=== PATIENT | female | born 1960 | race Caucasian/White ===

== ENCOUNTER 2018-02-24 11:47 | Emergency (ER) | payer MEDICAID, MEDICARE ==
[~2018-02-24] VITALS: Ht 165.1 cm; Wt 108.9 kg
[~2018-02-24 11:47] MED LIST: PAR20T PO
[2018-02-24 11:57] VITALS: BP 153/96
[2018-02-24] MEDS: cefTRIAXone SOD 1,000 MG VL ONE (12:57)
[2018-02-24] MEDS: TETANUS-DIPTH-ACEL PERTUSSIS 0.5ML SYRG IM ONE (13:12)
[2018-02-24] MEDS: KETOROLAC TROMETH 60MG/2ML VIAL IM ONE (13:12)
[2018-02-24] MEDS: cefTRIAXone SOD 1,000 MG VL IM ONE (13:12)
== END 2018-02-24 13:26 | disposition home or self-care (01) ==
LOC: ER 11:47
DX: S61.432A Puncture wound without foreign body of left hand, initial encounter (principal); J45.909 Unspecified asthma, uncomplicated; I10 Essential (primary) hypertension; F17.210 Nicotine dependence, cigarettes, uncomplicated; F12.10 Cannabis abuse, uncomplicated; W54.0XXA Bitten by dog, initial encounter; Y93.89 Activity, other specified; Y99.8 Other external cause status; Y92.89 Other specified places as the place of occurrence of the external cause
CPT/HCPCS: 73130; 90471; 90715; 96372; 99283; J0696; J1885

== ENCOUNTER 2021-04-12 14:08 | Inpatient (IN) | payer MEDICARE, MEDICAID ==
[~2021-04-12] VITALS: Ht 162.6 cm; Wt 122.2 kg
[2021-04-12 17:53] LABS: Urine Bacteria FEW /hpf (None Seen); Urine Blood Negative /uL (Negative); Urine Specific Gravity 1.018 (1.001-1.035); Urine WBC 1 /hpf (0 - 5)
[2021-04-12 18:09] LABS: Basophils # (auto) 0.1 10 ^3/uL (0-0.2); Basophils % (auto) 1.2 % (0.0-2.0); Eosinophils # (auto) 0.2 10 ^3/uL (0-0.8); Eosinophils % (auto) 2.7 % (0.0-7.0); Hematocrit 47.2 % (36.0-46.0); Hemoglobin 15.4 g/dL (12.2-16.2); Lymphocytes # (auto) 1.7 10 ^3/uL (0.4-5.4); Lymphocytes % (auto) 23.5 % (10.0-50.0); Mean Corpuscular Hemoglobin 29.5 pg (28.0-32.0); Mean Corpuscular Hgb Conc. 32.7 g/dL (32.0-36.0); Mean Corpuscular Volume 90.2 fL (80.0-100.0); Monocytes # (auto) 0.5 10 ^3/uL (0-1.3); Monocytes % (auto) 7.6 % (0.0-12.0); Neutrophils # (auto) 4.7 10 ^3/uL (1.6-8.6); Nucleated Red Blood Cells % 0.3 %; Red Blood Cells 5.23 10^6/uL (4.0-5.20); Red Cell Distribution Width 14.6 % (11.8-14.3); White Blood Cell 7.2 10^3/uL (4.4-10.8)
[2021-04-12 18:24] LABS: Magnesium 2.4 mg/dL (1.6-2.6)
[2021-04-12 18:41] LABS: Calcium 8.9 mg/dL (8.5-10.1); INR 1.09 (0.9-1.15); Partial Thromboplastin Time 28.8 sec (23.6-33.0); Potassium 3.8 mmol/L (3.5-5.1)
[2021-04-12 18:46] LABS: BUN/Creatinine Ratio 17.8; Total Protein 7.9 g/dL (6.4-8.2)
[2021-04-12] MEDS ORDERED: METOPROLOL TARTRATE 25 MG TAB PO ONE (20:15)
[2021-04-12] MEDS ORDERED: cefTRIAXone 1GM/50ML D5W 50 ML IV ONE (20:15)
[2021-04-12] MEDS ORDERED: ACETAMINOPHEN 325 MG TAB PO PRN (21:45)
[2021-04-12] MEDS ORDERED: MORPHINE SULFATE 4 MG/ML SYR/VIAL IV PRN (21:45)
[2021-04-12] MEDS ORDERED: METOPROLOL TARTRATE 1MG/1ML-5ML VIAL IV PRN (21:45)
[2021-04-12] MEDS ORDERED: ONDANSETRON HCL 4 MG/2 ML VIAL IV PRN (21:45)
[2021-04-12] MEDS ORDERED: FUROSEMIDE 20 MG/2 ML VIAL IV ONE (21:45)
[2021-04-12] MEDS ORDERED: DOCUSATE SOD 100 MG CAP PO PRN (21:45)
[2021-04-12] MEDS ORDERED: NITROGLYCERIN 0.4 MG SL TAB SL PRN (23:45)
[2021-04-12] MEDS ORDERED: MORPHINE SULFATE INJECTION 2 MG/ML SYRG IV PRN (23:45)
[2021-04-13 04:17] LABS: Basophils # (auto) 0.1 10 ^3/uL (0-0.2); Basophils % (auto) 1.7 % (0.0-2.0); Eosinophils # (auto) 0.2 10 ^3/uL (0-0.8); Eosinophils % (auto) 3.1 % (0.0-7.0); Hematocrit 44.6 % (36.0-46.0); Hemoglobin 15.1 g/dL (12.2-16.2); Lymphocytes # (auto) 1.3 10 ^3/uL (0.4-5.4); Lymphocytes % (auto) 20.6 % (10.0-50.0); Mean Corpuscular Hemoglobin 30.4 pg (28.0-32.0); Mean Corpuscular Hgb Conc. 33.8 g/dL (32.0-36.0); Mean Corpuscular Volume 90.1 fL (80.0-100.0); Monocytes # (auto) 0.5 10 ^3/uL (0-1.3); Monocytes % (auto) 8.1 % (0.0-12.0); Neutrophils % (auto) 66.5 % (37.0-80.0); Nucleated Red Blood Cells % 0.1 %; Red Blood Cells 4.95 10^6/uL (4.0-5.20); Red Cell Distribution Width 14.4 % (11.8-14.3); White Blood Cell 6.1 10^3/uL (4.4-10.8)
[2021-04-13] MEDS: METOPROLOL TARTRATE 25 MG TAB PO SCH ×2 (04:20→11:58)
[2021-04-13] MEDS: APIXABAN 5 MG TAB PO SCH ×3 (04:20→22:52)
[2021-04-13 04:34] LABS: Albumin 3.7 g/dL (3.4-5.0); BUN/Creatinine Ratio 16.9; Calcium 8.8 mg/dL (8.5-10.1); Potassium 4.1 mmol/L (3.5-5.1)
[2021-04-13 04:36] LABS: Bilirubin, Total 1.4 mg/dL (0.2-1.0); Total Protein 6.8 g/dL (6.4-8.2)
[2021-04-13] MEDS: SODIUM CHLOR 0.9% PF (SALINE LOCK) 10ML VIAL/SYR IV SCH ×4 (05:00→22:00)
[2021-04-13] MEDS: METOPROLOL TARTRATE 1MG/1ML-5ML VIAL IV SCH ×3 (05:00→06:05)
[2021-04-13] MEDS ORDERED: LEVOTHYROXINE SODIUM 25 MCG TAB PO SCH (07:00)
[2021-04-13] MEDS: LEVOTHYROXINE SODIUM 25 MCG TAB PO SCH ×2 (08:26→09:12)
[2021-04-13] MEDS: cefTRIAXone 1GM/50ML D5W 50 ML IV SCH (09:19)
[2021-04-13] MEDS: PARoxetine 20 MG TAB PO SCH (11:58)
[2021-04-13] MEDS: FAMOTIDINE (10MG/ML) 2ML VL IV SCH (11:58)
[2021-04-13] MEDS: FUROSEMIDE 20 MG/2 ML VIAL IV SCH (11:58)
[2021-04-13 12:19] LABS: Cholesterol 142 mg/dL (< 200); HDL Cholesterol 36 mg/dL (40-59); LDL Cholesterol 90 mg/dL (< 100); Triglycerides 113 mg/dL (< 150)
[2021-04-13] MEDS ORDERED: PAR20T PO (16:08)
[2021-04-13 16:59] VITALS: BP 131/90
[2021-04-13] MEDS: METOPROLOL TARTRATE 50 MG TAB PO SCH (18:12)
[2021-04-13 22:00] VITALS: BP 125/86
[2021-04-13] MEDS: AMIODARONE HCL 200 MG TAB PO SCH (22:00)
[2021-04-13] MEDS: LORazepam 0.5 MG TAB PO PRN (23:56)
[2021-04-14 05:00] VITALS: BP 128/85
[2021-04-14] MEDS: SODIUM CHLOR 0.9% PF (SALINE LOCK) 10ML VIAL/SYR IV SCH ×3 (05:30→21:11)
[2021-04-14] MEDS: LEVOTHYROXINE SODIUM 88 MCG TAB PO SCH (05:30)
[2021-04-14 08:41] VITALS: BP 139/77
[2021-04-14] MEDS: cefTRIAXone 1GM/50ML D5W 50 ML IV SCH (09:14)
[2021-04-14] MEDS: FUROSEMIDE 20 MG/2 ML VIAL IV SCH (09:15)
[2021-04-14] MEDS: FAMOTIDINE (10MG/ML) 2ML VL IV SCH (09:15)
[2021-04-14] MEDS: AMIODARONE HCL 200 MG TAB PO SCH ×2 (09:16→21:10)
[2021-04-14] MEDS: METOPROLOL TARTRATE 50 MG TAB PO SCH ×2 (09:16→21:13)
[2021-04-14] MEDS: APIXABAN 5 MG TAB PO SCH ×2 (09:16→21:08)
[2021-04-14] MEDS: PARoxetine 20 MG TAB PO SCH (09:17)
[2021-04-14 13:00] VITALS: BP 125/87
[2021-04-14 21:30] VITALS: BP 128/66
[2021-04-14] MEDS: LORazepam 0.5 MG TAB PO PRN (23:45)
[2021-04-15 05:15] VITALS: BP 137/97
[2021-04-15] MEDS: SODIUM CHLOR 0.9% PF (SALINE LOCK) 10ML VIAL/SYR IV SCH ×3 (05:40→22:22)
[2021-04-15] MEDS: LEVOTHYROXINE SODIUM 88 MCG TAB PO SCH (05:41)
[2021-04-15 09:36] VITALS: BP 120/67
[2021-04-15] MEDS: cefTRIAXone 1GM/50ML D5W 50 ML IV SCH (10:50)
[2021-04-15] MEDS: FUROSEMIDE 20 MG/2 ML VIAL IV SCH (10:51)
[2021-04-15] MEDS: FAMOTIDINE (10MG/ML) 2ML VL IV SCH (10:51)
[2021-04-15] MEDS: AMIODARONE HCL 200 MG TAB PO SCH ×2 (10:52→22:22)
[2021-04-15] MEDS: APIXABAN 5 MG TAB PO SCH ×2 (10:52→22:21)
[2021-04-15] MEDS: METOPROLOL TARTRATE 50 MG TAB PO SCH ×2 (10:53→22:21)
[2021-04-15] MEDS: PARoxetine 20 MG TAB PO SCH (10:56)
[2021-04-15 14:46] VITALS: BP 114/87
[2021-04-15 16:32] VITALS: BP 116/95
[2021-04-15 22:00] VITALS: BP 125/82
[2021-04-15] MEDS: LORazepam 0.5 MG TAB PO PRN (23:17)
[2021-04-16] VITALS (9 sets, daily range): BP systolic 108–131; BP diastolic 66–110
[2021-04-16] MEDS: SODIUM CHLOR 0.9% PF (SALINE LOCK) 10ML VIAL/SYR IV SCH ×3 (06:14→22:02)
[2021-04-16] MEDS: LEVOTHYROXINE SODIUM 88 MCG TAB PO SCH (06:15)
[2021-04-16] MEDS ORDERED: ANGIOMAX 250 MG VIAL IV ONE (08:11)
[2021-04-16] MEDS ORDERED: MIDAZOLAM HCL 2MG/2ML 2ml VIAL (1mg/ml) ONE (08:12)
[2021-04-16] MEDS ORDERED: SODIUM CHL 0.9% 50 ML ONE (08:12)
[2021-04-16] MEDS ORDERED: fentaNYL CITRATE 100 MCG/2 ML VL ONE (08:12)
[2021-04-16] MEDS ORDERED: LIDOCAINE 2%HCL (LOCAL ANESTH.) INJ 20ML MDV ONE ×2 (08:25→09:16)
[2021-04-16] MEDS ORDERED: IOHEXOL 350 MG/ML 100ML IJ ONE ×2 (08:25→09:43)
[2021-04-16] MEDS ORDERED: CLOPIDOGREL 300 MG TAB ONE (09:40)
[2021-04-16] MEDS: cefTRIAXone 1GM/50ML D5W 50 ML IV SCH (11:43)
[2021-04-16] MEDS: FUROSEMIDE 20 MG/2 ML VIAL IV SCH (11:43)
[2021-04-16] MEDS: AMIODARONE HCL 200 MG TAB PO SCH ×2 (11:44→22:00)
[2021-04-16] MEDS: APIXABAN 5 MG TAB PO SCH ×2 (11:44→22:00)
[2021-04-16] MEDS: FAMOTIDINE (10MG/ML) 2ML VL IV SCH (11:44)
[2021-04-16] MEDS: METOPROLOL TARTRATE 50 MG TAB PO SCH ×2 (11:45→22:01)
[2021-04-16] MEDS: PARoxetine 20 MG TAB PO SCH (11:45)
[2021-04-16] MEDS: HYDROcodone-ACET 5/325MG TAB PO PRN (12:51)
[2021-04-16] MEDS: LORazepam 0.5 MG TAB PO PRN (22:01)
[2021-04-17] MEDS: HYDROcodone-ACET 5/325MG TAB PO PRN ×3 (04:27→21:20)
[2021-04-17 05:00] VITALS: BP 122/93
[2021-04-17] MEDS: SODIUM CHLOR 0.9% PF (SALINE LOCK) 10ML VIAL/SYR IV SCH ×3 (06:25→21:19)
[2021-04-17] MEDS: LEVOTHYROXINE SODIUM 88 MCG TAB PO SCH (06:25)
[2021-04-17 09:00] VITALS: BP 119/81
[2021-04-17] MEDS: FUROSEMIDE 20 MG/2 ML VIAL IV SCH (10:38)
[2021-04-17] MEDS: cefTRIAXone 1GM/50ML D5W 50 ML IV SCH (10:38)
[2021-04-17] MEDS: APIXABAN 5 MG TAB PO SCH ×2 (10:39→21:19)
[2021-04-17] MEDS: METOPROLOL TARTRATE 50 MG TAB PO SCH ×2 (10:39→21:32)
[2021-04-17] MEDS: AMIODARONE HCL 200 MG TAB PO SCH ×2 (10:39→21:19)
[2021-04-17] MEDS: FAMOTIDINE (10MG/ML) 2ML VL IV SCH (10:39)
[2021-04-17] MEDS: PARoxetine 20 MG TAB PO SCH ×2 (10:40→12:42)
[2021-04-17] MEDS: CLOPIDOGREL BISULFATE 75 MG TAB PO SCH (10:40)
[2021-04-17 13:00] VITALS: BP 104/61
[2021-04-17 17:00] VITALS: BP 102/76
[2021-04-17] MEDS: LORazepam 0.5 MG TAB PO PRN (21:32)
[2021-04-17 22:00] VITALS: BP 119/67
[2021-04-18] MEDS: HYDROcodone-ACET 5/325MG TAB PO PRN ×2 (04:19→09:52)
[2021-04-18 05:00] VITALS: BP 120/91
[2021-04-18] MEDS: SODIUM CHLOR 0.9% PF (SALINE LOCK) 10ML VIAL/SYR IV SCH ×3 (06:32→22:28)
[2021-04-18] MEDS: LEVOTHYROXINE SODIUM 88 MCG TAB PO SCH (06:33)
[2021-04-18 08:48] VITALS: BP 124/77
[2021-04-18] MEDS: cefTRIAXone 1GM/50ML D5W 50 ML IV SCH (09:35)
[2021-04-18] MEDS: FAMOTIDINE (10MG/ML) 2ML VL IV SCH (09:36)
[2021-04-18] MEDS: APIXABAN 5 MG TAB PO SCH ×2 (09:36→22:29)
[2021-04-18] MEDS: AMIODARONE HCL 200 MG TAB PO SCH ×2 (09:36→22:29)
[2021-04-18] MEDS: FUROSEMIDE 20 MG/2 ML VIAL IV SCH (09:36)
[2021-04-18] MEDS: PARoxetine 20 MG TAB PO SCH (09:37)
[2021-04-18] MEDS: CLOPIDOGREL BISULFATE 75 MG TAB PO SCH (09:37)
[2021-04-18] MEDS: METOPROLOL TARTRATE 50 MG TAB PO SCH ×2 (09:37→22:30)
[2021-04-18 12:30] VITALS: BP 109/79
[2021-04-18 17:18] VITALS: BP 101/51
[2021-04-18 20:00] VITALS: BP 119/67
[2021-04-19] MEDS: HYDROcodone-ACET 5/325MG TAB PO PRN (00:07)
[2021-04-19 05:00] VITALS: BP 113/94
[2021-04-19] MEDS: LEVOTHYROXINE SODIUM 88 MCG TAB PO SCH (06:07)
[2021-04-19] MEDS: SODIUM CHLOR 0.9% PF (SALINE LOCK) 10ML VIAL/SYR IV SCH ×2 (06:07→14:00)
[2021-04-19] MEDS ORDERED: FURO1TAB33 PO (08:40)
[2021-04-19] MEDS ORDERED: AMIO200T33 PO (08:40)
[2021-04-19] MEDS ORDERED: CLOP75TA28 PO (08:40)
[2021-04-19] MEDS ORDERED: APIX5TAB PO (08:40)
[2021-04-19] MEDS ORDERED: MET50T PO (08:40)
[2021-04-19] MEDS ORDERED: LEVO88TA2 PO (08:40)
[2021-04-19 09:00] VITALS: BP 127/74
[2021-04-19] MEDS: cefTRIAXone 1GM/50ML D5W 50 ML IV SCH (10:10)
[2021-04-19] MEDS: APIXABAN 5 MG TAB PO SCH (10:11)
[2021-04-19] MEDS: AMIODARONE HCL 200 MG TAB PO SCH (10:11)
[2021-04-19] MEDS: FAMOTIDINE (10MG/ML) 2ML VL IV SCH (10:11)
[2021-04-19] MEDS: FUROSEMIDE 20 MG/2 ML VIAL IV SCH (10:11)
[2021-04-19] MEDS: METOPROLOL TARTRATE 50 MG TAB PO SCH (10:12)
[2021-04-19] MEDS: PARoxetine 20 MG TAB PO SCH (10:12)
[2021-04-19] MEDS: CLOPIDOGREL BISULFATE 75 MG TAB PO SCH (10:12)
[2021-04-19 13:00] VITALS: BP 101/66
[2021-04-19 13:54] VITALS: BP 101/66
== END 2021-04-19 17:36 | disposition home or self-care (01) | DRG 246 ==
LOC: ER 14:08 → TELE 23:40 → TELE-CENTR 04-13 15:20
PROVIDERS: ADMIT Nurse Practitioner Family; ATTEND Family Medicine
PROC: 027034Z Dilation of Coronary Artery, One Artery with Drug-eluting Intraluminal Device, Percutaneous Approach (ICD-10-PCS; principal; 2021-04-16)
PROC: 4A023N8 Measurement of Cardiac Sampling and Pressure, Bilateral, Percutaneous Approach (ICD-10-PCS; 2021-04-16)
PROC: B2151ZZ Fluoroscopy of Left Heart using Low Osmolar Contrast (ICD-10-PCS; 2021-04-16)
PROC: B2111ZZ Fluoroscopy of Multiple Coronary Arteries using Low Osmolar Contrast (ICD-10-PCS; 2021-04-16)
PROC: B3101ZZ Fluoroscopy of Thoracic Aorta using Low Osmolar Contrast (ICD-10-PCS; 2021-04-16)
DX: I48.91 Unspecified atrial fibrillation (principal); I50.31 Acute diastolic (congestive) heart failure; N30.00 Acute cystitis without hematuria; I11.0 Hypertensive heart disease with heart failure; E03.9 Hypothyroidism, unspecified; D64.9 Anemia, unspecified; E78.5 Hyperlipidemia, unspecified; F12.90 Cannabis use, unspecified, uncomplicated; I10 Essential (primary) hypertension; J45.909 Unspecified asthma, uncomplicated; Z20.822 Contact with and (suspected) exposure to COVID-19; E78.00 Pure hypercholesterolemia, unspecified; F17.210 Nicotine dependence, cigarettes, uncomplicated; F32.A Depression, unspecified; F41.9 Anxiety disorder, unspecified; R07.9 Chest pain, unspecified; I34.0 Nonrheumatic mitral (valve) insufficiency; I27.20 Pulmonary hypertension, unspecified; Z82.0 Family history of epilepsy and other diseases of the nervous system
CPT/HCPCS: 36415; 71046; 80053; 80061; 81001; 83735; 83880; 84439; 84443; 84484; 85025; 85610; 85730; 86850; 86900; 86901; 87426; 92928; 93005; 93306; 93460; 93567; 96365; 96366; 96375; 99152; 99153; 99291; C1751; C1874; G0378; J0696; J2250; J3490